=== PATIENT | male | born 1990 | race Caucasian/White ===

== ENCOUNTER → 2023-12-25 | Outpatient (CLI) | payer OTHER, SELFPAY ==
[2023-12-25 15:30] LABS: Uric Acid 7.4 mg/dL (3.5-7.2)
== END | disposition home or self-care (01) ==
LOC: BFHLAB 13:12
PROVIDERS: PCP Family Medicine; Referring Provider Family Medicine; Visit Provider Family Medicine
DX: M10.9 Gout, unspecified (principal)
CPT/HCPCS: 36415; 84550

== ENCOUNTER → 2024-01-10 | Outpatient (CLI) | payer OTHER, SELFPAY ==
[2024-01-10 15:15] LABS: Absolute Lymphocyte Count 2.17 X10^3/uL (0.83-4.51); Absolute Neutrophil Count 4.1 X10^3/uL (2.0-7.7); Basophil# 0.05 X10^3/uL; Basophil% 0.7 % (0-1); Eosinophil# 0.15 X10^3/uL; Eosinophils% 2.2 % (0-5); Hemoglobin 15.5 g/dL (13.0-16.5); Lymphocyte # 2.17 X10^3/ul (0.83-4.51); Lymphocyte % 31.3 % (19-41); Mean Corp Hgb Conc 34.4 g/dL (32-36); Mean Corpuscular Hgb 29.9 pg (27.0-32.0); Mean Corpuscular Volume 86.9 fL (80-94); Mean Platelet Vol. 9.7 fl (6.2-12.0); Monocyte# 0.45 X10^3/uL; Monocyte% 6.5 % (0-10); NRBC Flagged by Analyzer 0 % (0-5); Neutrophil # 4.09 X10^3/uL (2.7-7.7); Platelet Count 303 K/mm3 (150-450); RBC Distribution Width CV 12.3 % (11.6-14.6); RBC Distribution Width SD 38.9 fl (35.1-43.9); Red Blood Count 5.18 M/mm3 (4.6-6.2); White Blood Count 6.9 K/mm3 (4.4-11.0)
[2024-01-10 15:19] LABS: Anion Gap 5 (5-15); BUN 14 mg/dL (7-18); BUN/Creat Ratio 12.6 RATIO (10-20); Calcium,Total 9.4 mg/dL (8.5-10.1); Chloride 108 mmol/L (98-107); Creatinine, Serum 1.11 mg/dL (0.70-1.30); EST Glomerular Filtration Rate 81 mL/min (>60); Est Glom Filt Rate - Afr Amer 98 mL/min (>60); Glucose 99 mg/dL (74-106); Potassium 4.2 mmol/L (3.5-5.1); Sodium Level 141 mmol/L (136-145); Uric Acid 6.2 mg/dL (3.5-7.2)
== END | disposition home or self-care (01) ==
LOC: BFHLAB 13:27
PROVIDERS: PCP Family Medicine; Referring Provider Family Medicine; Visit Provider Family Medicine
DX: M10.9 Gout, unspecified (principal); Z51.81 Encounter for therapeutic drug level monitoring
CPT/HCPCS: 36415; 80048; 84550; 85025

== ENCOUNTER → 2025-04-22 | Outpatient (CLI) | payer OTHER, SELFPAY | END | disposition home or self-care (01) | LOC: LABSPEC 12:16 | PROVIDERS: PCP Family Medicine; Visit Provider Family Medicine | DX: L02.11 Cutaneous abscess of neck (principal) | CPT/HCPCS: 87070; 87077; 87186; 87205 ==

== ENCOUNTER → 2025-05-07 | Outpatient (CLI) | payer OTHER, SELFPAY ==
--- NOTE | 2025-05-07 08:55 | US_ITS ---
PROCEDURE: HEAD/NECK SOFT TISSUE 05/07/2025 REASON FOR EXAM: SEBACCEOUS CYST Palpable lump corresponds to a wound. TECHNIQUE: Procedure Code: USH/N SOFT Modality: US Procedure: HEAD/NECK SOFT TISSUE COMPARISON: None FINDINGS: The palpable lump corresponds to a 1.3 cm by 1.1 cm by 0.5 cm heterogeneous fluid collection just deep to the skin surface. This most likely represents a sebaceous cyst. Incidental note is made of a 1.4 cm by 0.6 cm x 0.4 cm benign-appearing lymph node just inferior to this palpable lump. US/Head/Neck Soft Tissue IMPRESSION: 1.3 cm x 1.1 cm x 0.5 cm hypoechoic fluid collection just deep to the skin surf angie corresponds with the palpable lump. This most likely represents a sebaceous cyst. Reading Location: [id number]
--- OUTSIDE RECORDS SUMMARY | 2025-05-07 09:27 | XMS RPT_ITS | CCD ---
Author Organization [facility] [employer] [facility] Care Team Providers Care Spanish Literature Professor Name Role Phone Dr. Julian Gamino DO Primary Care Provider Dr. Julian Gamino DO Attending Provider Julian Gamino Referring Unavailable Julian Gamino Attending Unavailable Julian Gamino Primary Care Unavailable Julian Gamino Attending Unavailable Julian Gamino Primary Care Unavailable Problems Problem Classification Problem Date Documented Da te Episodic/Chronic Other skin disorders (1 source) Sebaceous cyst; Translations: [Sebaceous cyst] Onset: 05-02-2025 Episodic Skin and subcutaneous tissue infections (1 source) Cutaneous abscess of neck; Translations: [Cutaneous abscess of neck] Onset: 04-30-2025 Episodic Results Test Name Value Interpretation Reference Range Facil ity Wound Cultureon 04-26-2025 WC CUTANEOUS ANSCESS OF NECK Pending Staphylococcus lugdunensis Amount Growth 1+ Staphylococcus lugdunensis: REACTION cefOXitin Susc Islt Doxycycline Islt FADI <=0.5 S Clindamycin Islt FADI <=0.12 S Clindamycin.induced Susc Islt NEG Erythromycin Islt FADI <=0.25 S Gentamicin Islt FADI <=0.5 S Linezolid Islt FADI 1 S Oxacillin Susc Islt 0.5 S Tetracycline Islt FADI <=1 S TMP SMX Islt FADI <=10 S Vancomycin Islt FADI <=0.5 S Normal [facility] Comment on above: Performed By: #### M 100.3000, M100.2000 #### [facility] [address] [place], [address] Gram Stainon 04-23-2025 GS CUTANEOUS ANSCESS OF NECK Gram Stain 3+ White Blood Cells 1+ Gram positive cocci Normal [facility] Comment on above: Performed By: #### M 100.3000, M100.2000 #### [facility] [address] [place], [address] Gram stainOrdered By: Julian jackson on 04-22-2025 Microscopic observation Gram stain Nom (Unsp spec) [facility] Routine wound cultureOrdered By: Julian Gamino on 04-22-2025 Microbial culture, routine Staphylococcus lugdunensis Abnormal [facility] Serum or plasma uric acid me asurement (mass/volume)Ordered By: Julian Gamino on 12-25-2023 Urate [Mass/Vol] 7.4 mg/dL 3.5-7.2 [facility] Comment on above: The drugs N-Acetylcy steine and Metamizole may falsely depress this assay. Encounters Encounter Date Encounter Type Care Provider Facility Start: 05-07-2025 ambulatory Julian Gamino Facility: [facility] Start: 04-22-2025 End: 04-22-[address] Julian Gamino DO Work Phone: -Laboratory Specimen Start: 04-22-2025 End: 04-22-[address] Julian Gamino DO -Laboratory Specimen Work Phone: Start: 04-22-2025 End: 04-22-2025 ambulatory Julian Gamino Facility:[facility] Start: 12-25-2023 End: 12-25-2023 ambulatory [facility] Work Phone: Start: 12-25-2023 End: 12-25-2023 Patient encounter procedure [facility]-Laboratory, Martir Menezes [facility] Procedures Date Procedure Procedure Detail Performing Clinician Start: 04-22-2025 Gram stain microscopy D lino Gamino DO Work Phone: Start: 04-22-2025 Microbial culture, routine Dr. Julian Gamino DO Work Phone: Payers Date Payer Category Payer Private Health Insurance [id number] 2025 Self-pay Private Health Insurance [employer] [id number] Unknown [id number] Unknown [id number] Unknown [id number] Social History Date Type Detail Facility Tobacco smoking stat [facility] Unknown if ever smoked [facility] Work Phone: Start: 1990 Sex Assigned At Male [facility] Tobacco smoking stat [facility] Unknown if ever smoked [facility] Work Phone: Evaluation note Note Date & Type Note Facility Evaluation note No assessment information availa ble [facility] Work Phone: Reason for referral (narrative) Note Date & Type Note Facility Reason for referral (narrative) No reason for referral information available [facility] Work Phone: Summary Purpose Family History No Family History Records Found Advance Directives No Advanced Directives Records Found Additional Source Comments Care Teams (unrecognized sec tion and content) Team Status: Active Member Role Status Dates Nina [place] MD Family Provider Active Dr. Julian Gamino DO Primary Care Provider Active Team Status: Inactive Member Role Status Dates Dr. Julian Gamino DO Primary Care Prov ider, Attending Provider, Referring Provider Active Team Status: Active Member Role/Relationship Status Dates Nina [facility] MD Family Provider Active Dr. Julian Gamino DO Primary Care Provider Active Team Status: Inactive Member Role/Relationship Status Dates Dr. Julian Gamino DO Primary Care Provider Active Start: April 22, 2025 End: April 22, 2025 Dr. Julian Gamino DO Attending Provider Active Start: April 22, 2025 End: April 22, 2025 Goals (unrecognized section and content) Goals may be documented in a n alternate sectionGoals may be documented in an alternate section (unrecognized sect ion and content) No Status Records Found INFORMATION SOURCE (unrecogn ized section and content) DATE CREATED AUTHOR 05/05/2025 [facility] FOR RECORDS PERTAINING TO PATIENTS WHO ARE OR HAVE BEEN ENROLLED IN A CHEMICAL DEPENDENCY/SUBSTANCEABUSE PROGRAM, SOME INFORMATION MAY BE OMITTED. This clinical summary was aggregated from multiple sources. Caution should be exercised in using it in the provision of clinical care. This summary normalizes information from multiple sources, and as a consequence, information in this document may materially change the coding, format and clinical context of patient data. In addition, data may be omitted in some cases. CLINICAL DECISIONS SHOULD BE BASED ON THE PRIMARY CLINICAL RECORDS. [facility] [employer] [facility]. provides no warranty or guarantee of the accuracy or completeness of information in this document.
== END | disposition home or self-care (01) ==
PROVIDERS: PCP Family Medicine; Referring Provider Family Medicine; Visit Provider Family Medicine
DX: L72.3 Sebaceous cyst (principal)
CPT/HCPCS: 76536

== ENCOUNTER → 2025-08-11 | Outpatient (CLI) | payer OTHER, SELFPAY ==
[2025-08-11 17:30] LABS: Hematocrit 46.1 % (40-54); Hemoglobin 16.2 g/dL (13.0-16.5); Immature Granulocytes Count 0.020 X10^3/uL (0.0-0.0); Mean Corp Hgb Conc 35.1 g/dL (32-36); Mean Corpuscular Volume 87.6 fL (80-94); Mean Platelet Vol. 10.5 fl (6.2-12.0); NRBC Flagged by Analyzer 0 % (0-5); Platelet Count 290 K/mm3 (150-450); RBC Distribution Width CV 12.4 % (11.6-14.6); RBC Distribution Width SD 38.8 fl (35.1-43.9); Red Blood Count 5.26 M/mm3 (4.6-6.2); White Blood Count 5.9 K/mm3 (4.4-11.0)
[2025-08-11 18:32] LABS: PTHIN 55 pg/mL (11-61)
[2025-08-11 18:50] LABS: Calcium 10.0 mg/dL (7.6-11.0); Ferritin 392 ng/mL (37-417); Vitamin B12 364 pg/mL (180-914); Vitamin D,25 Hydroxy 24.0 ng/mL (30-100)
[2025-08-15 00:07] LABS: Zinc, Plasma or Serum 82 ug/dL (44-115)
== END | disposition home or self-care (01) ==
PROVIDERS: PCP Family Medicine; Visit Provider Physician Assistant
DX: L64.8 Other androgenic alopecia (principal)
CPT/HCPCS: 36415; 82306; 82310; 82607; 82728; 83970; 84439; 84443; 84630; 85025; 86376

== ENCOUNTER → 2025-08-25 | Outpatient (CLI) | payer OTHER, SELFPAY ==
--- NOTE | 2025-08-25 15:00 | CYST_PTH ---
PATIENT: BETTYE [facility]AGA [facility] U#:[id number] AGE/SX: 34/M ROOM: RE08/25/[address]: Dr. Hola Gray MD : 1990 BED: DIS: 08/25/2025 SPEC #: [id number] RECD: 08/26/25 15:32 STATUS: SANJUANA RETez #: [id number] MARY LOU: 08/25/25 15:[address]: Hola Gray DEPT: SURGICAL PATHOLOGY RECD BY: Kimmy Reyna ENTERED: 08/26/25 08:34 SP TYPE: Cyst OTHR DR: Dr. Julian Gamino, DO Tissues: CYST Procedures: Surgery Specimen Level III HEADER OPERATION: Excision of right neck sebaceous cyst PRE-OP DIAGNOSIS: Same TISSUE SUBMITTED: A. Right neck sebaceous cyst MICROSCOPIC DIAGNOSIS A. Right neck, sebaceous cyst, excision: - Fibroadipose tissue, benign. - No cyst wall or keratin debris identified (deeper sections examined). MICROSCOPIC DESCRIPTION Slides are reviewed. GROSS DESCRIPTION A. Received in fixative is one container labeled with the patient's name and designated right neck sebaceous cyst. The specimen consists of a single fragment of pink firm fibrofatty tissue measuring 1.5 x 1 x 0.5 cm and is totally submitted in one cassette. CW:08/26/2025 CPT: 08776
== END | disposition home or self-care (01) ==
LOC: LABSPEC 15:40
PROVIDERS: PCP Family Medicine; Referring Provider Surgery; Visit Provider Surgery
DX: L72.3 Sebaceous cyst (principal)
CPT/HCPCS: 88304